=== PATIENT | female | born 1950 | race Caucasian/White ===

== ENCOUNTER 2017-02-24 03:06 | Emergency (ER) | payer MEDICARE ==
[~2017-02-24] VITALS: Ht 165.1 cm; Wt 62.0 kg
[2017-02-24 03:13] VITALS: BP 170/90
== END 2017-02-24 04:13 | disposition home or self-care (01) ==
LOC: ED 04:05
DX: H10.13 Acute atopic conjunctivitis, bilateral (principal); I10 Essential (primary) hypertension
CPT/HCPCS: 99283